=== PATIENT | female | born 1945 | race Caucasian/White ===

== ENCOUNTER 2017-11-19 11:45 | Day surgery (SDC) | payer MEDICARE, SELFPAY ==
[2017-10-12 10:33] VITALS: BMI 29.2
[2017-11-16 18:35] VITALS: BP 144/75; PULSE 88; RESP 17; TEMP 36.2; O2SAT 95
[2017-11-19] VITALS (11 sets, daily range): BP systolic 111–153; BP diastolic 67–92; PULSE 78–96; RESP 14–18; TEMP 36.3–36.8; O2SAT 95–99; BMI 29.2
--- NOTE | 2017-11-19 | DI.RAD.S_ITS ---
PROCEDURE: XR KNEE RT 1TO2V INDICATIONS: POST OP KNEE SURGERY TECHNIQUE: 2 view(s) of the knee acquired. COMPARISON: [facility] CHAYO Curiel, XR KNEE ARTHRITIC SERIES LT, 08/12/2017, 13:41. FINDINGS: Bones: Patient is status post knee joint arthroplasty. Hardware components are in expected positions. Visualized bony structures are intact. Soft tissues: Overlying postoperative changes are noted. IMPRESSION: Acute postoperative changes of total right knee arthroplasty. Dictated by: Manoj Lomeli M.D. on 11/19/2017 at 16:47 Approved by: Manoj Lomeli M.D. on 11/19/2017 at 16:47
[2017-11-19] MEDS: LACTATED RINGERS 1,000 ML 42 ML IV (12:25)
[2017-11-19] MEDS: VANCOMYCIN 1,000 MG/200 ML FROZ.PIGGY 133.333 MG IV (12:26)
--- NOTE | 2017-11-19 13:56 | PM.PREOP ---
Pre-operative Note Interval Note Pre-op Check: History & Physical Reviewed by Physician
--- NOTE | 2017-11-19 13:56 | PM.OP.1 ---
Operative Date/Time/Diagnoses - Date of procedure: 11/19/17 Time of procedure: 13:56 Post-op diagnosis: same Procedure & Clinicians Procedure: Right total knee arthroplasty Same procedure as scheduled: Yes Indications: The patient has had progressively worsening right knee pain with radiographic changes consistent with arthritis. Non-operative management has failed and the patient has requested total knee replacement. The risks, benefits and alternatives to surgery were discussed with the patient prior to proceeding. Risks discussed included, but were not limited to, failure to relieve pain, stiffness, infection, nerve damage, deep venous thrombosis, pulmonary embolism, stroke, coma, heart attack, permanent paralysis and , as well as the potential need for eventual revision of the prosthetic. Surgeon: Ashley Noriega Sales Agent Financial Report Service: Florin Quispe Anesthesia Type: Spinal Operative Notes Findings: Severe right knee osteoarthritis Closure Type: primary Specimen(s): none sent Implants & Drains: Noriega and Karen Bernadette BCS2 femur 7, Tibia 6, poly 9 , patella 38 Estimated Blood Loss (mL): 200 Blood products transfused: none Procedure in detail: The patient was seen in the pre-operative area, where the patient identified the right knee as the operative site and this was marked with my initials. The patient received pre-operative antibiotics, and was taken to the operating room and placed on the operative table in the supine position. After satisfactory anesthesia, a timers inspector out was performed. The right leg was encircled with a tourniquet about the proximal thigh, and the leg was prepared from the toes to the tourniquet with ChloroPrep in the usual fashion and draped through sterile drapes. The leg was elevated and exsanguinated with Eschmark bandage and the tourniquet inflated to [250] mmHg pressure. The knee was approached through an approximately 18 cm incision centered over the patella and carried into the knee through a medial parapatellar arthrotomy. A Portion of the medial and lateral meniscus was resected. Soft tissue was carefully mobilized around the patella the patella was measured with a caliper. Bone was resected from the patella and the patellar height was reconstituted with up an appropriate sized patellar component. A cover was then placed on the patella. A small amount of additional medial and lateral meniscus was resected. The visionare guide fit well to the distal femur. It looked like an appropriate distal femoral cut and the cut was made without difficulty. The rotation was assessed and the appropriate size femoral guide was placed on the distal femur and finishing cuts were made. There was no evidence of notching. The anterior, posterior and chamfer cuts were then made. The posterior osteophytes and soft tissues were then removed. The posterior capsule was injected with part of a mixture of 60 ml 0.25% Marcaine mixed with 20 ml Exparel for post operative pain control. The remainder of this mixture was injected into the capsule and subcutaneous tissues during cement curing. The tibia was prepared and the visionaire guide fit well to the distal tibia. The rotation was assessed. The patient was placed in extension residual medial and lateral meniscus as well as any residual bone was carefully resected. No additional tibia was resected. Hemostasis was achieved especially posteriorly. Additional local was injected into the posterior capsule. The extension gap was assessed and additional releases for gap balancing were performed as necessary. It was checked with the gap manager english. The femoral component was trial was placed and the notch was finished. Trial tibial and femoral components were then placed and the knee placed through a range of motion. Range of motion was [0-130], with good stability throughout the range. A vicryl stitch was placed in the popliteal tendon. The trials were then removed, and the tibia was finished. The bone was prepared with pulsatile lavage, and dried with a sponge. Cement was applied and the final prosthetics placed. Excess cement was removed during and after cement curing. A brief Betadine soak was performed. After confirming there was no extruded cement posteriorly, the final tibial insert was placed. The knee was copiously irrigated and the tourniquet deflated. Hemostasis was obtained with the [cautery]. A drain was placed and brought out superolaterally. The capsule was closed with interrupted # 1 black braided suture. The subcutaneous layer was closed with barbed sutures, and the skin with a running 3-0 V-Lock suture and Surgical glue. An Aquacel Ag dressing was applied and the patient was taken to recovery having tolerated the procedure well. Complications: none Condition: stable Disposition: Acute Care Plan for aftercare: The patient will be maintained on a standard total knee replacement protocol with weight bearing as tolerated. The patient will receive Aspirin and sequential compression devices for DVT prophylaxis. The patient will be discharged home when safe for the home environment.
[2017-11-19] MEDS: CEFAZOLIN 2 GM/100 ML FROZ.PIGGY IV ×2 (14:20→21:12)
[2017-11-19] MEDS: BUPIVACAINE LIPOSOME 266 MG/20 ML VIAL INJ (14:57)
[2017-11-19] MEDS: POVIDONE-IODINE 15 ML, SODIUM CHLORIDE 0.9% 250 ML TOP (14:59)
[2017-11-19] MEDS: BUPIVACAINE 0.25% W/ EPI 50 ML VIAL INJ (15:04)
[2017-11-19] MEDS: MORPHINE 10 MG/ML INJ 2 MG IV ×5 (16:15→16:40)
--- NOTE | 2017-11-19 16:39 | PM.OP.1 ---
Operative Date/Time/Diagnoses - Date of procedure: 11/19/17 Time of procedure: 14:10 Pre-op diagnosis: Right knee OA Post-op diagnosis: same Procedure & Clinicians Procedure: Right total knee replacement Same procedure as scheduled: Yes Indications: The patient has had progressively worsening right knee pain with radiographic changes consistent with arthritis. Non-operative management has failed and the patient has requested total knee replacement. The risks, benefits and alternatives to surgery were discussed with the patient prior to proceeding. Risks discussed included, but were not limited to, failure to relieve pain, stiffness, infection, nerve damage, deep venous thrombosis, pulmonary embolism, stroke, coma, heart attack, permanent paralysis and , as well as the potential need for eventual revision of the prosthetic. Surgeon: Ashley Noriega Tile Roofer: Florin Quispe Anesthesia Type: Spinal Operative Notes Findings: Severe right knee OA Closure Type: primary Specimen(s): none sent Implants & Drains: Noriega and Nephew Bernadette BCS2 size 7 femur, size 6 tibia, size 9 poly, 38 mm patella Applied: drain(s) Estimated Blood Loss (mL): 200 Blood products transfused: none Tourniquet time (min): 66 Procedure in detail: The patient was seen in the pre-operative area, where the patient identified the right knee as the operative site and this was marked with my initials. The patient received pre-operative antibiotics, and was taken to the operating room and placed on the operative table in the supine position. After satisfactory anesthesia, a time study technologist out was performed. The right leg was encircled with a tourniquet about the proximal thigh, and the leg was prepared from the toes to the tourniquet with ChloroPrep in the usual fashion and draped through sterile drapes. The leg was elevated and exsanguinated with Eschmark bandage and the tourniquet inflated to [250] mmHg pressure. The knee was approached through an approximately 18 cm incision centered over the patella and carried into the knee through a medial parapatellar arthrotomy. A Portion of the medial and lateral meniscus was resected. Soft tissue was carefully mobilized around the patella the patella was measured with a caliper. Bone was resected from the patella and the patellar height was reconstituted with up an appropriate sized patellar component. A cover was then placed on the patella. A small amount of additional medial and lateral meniscus was resected. The visionare guide fit well to the distal femur. It looked like an appropriate distal femoral cut and the cut was made without difficulty. The rotation was assessed and the appropriate size femoral guide was placed on the distal femur and finishing cuts were made. There was no evidence of notching. The anterior, posterior and chamfer cuts were then made. The posterior osteophytes and soft tissues were then removed. The posterior capsule was injected with part of a mixture of 60 ml 0.25% Marcaine mixed with 20 ml Exparel for post operative pain control. The remainder of this mixture was injected into the capsule and subcutaneous tissues during cement curing. The tibia was prepared and the visionaire guide fit well to the distal tibia. The rotation was assessed. The patient was placed in extension residual medial and lateral meniscus as well as any residual bone was carefully resected. [No] additional tibia was resected. Hemostasis was achieved especially posteriorly. Additional local was injected into the posterior capsule. The extension gap was assessed and additional releases for gap balancing were performed as necessary. It was checked with the gap drug safety assistant. The femoral component was trial was placed and the notch was finished. Trial tibial and femoral components were then placed and the knee placed through a range of motion. Range of motion was [0-130], with good stability throughout the range. The trials were then removed, and the tibia was finished. The bone was prepared with pulsatile lavage, and dried with a sponge. Cement was applied and the final prosthetics placed. Excess cement was removed during and after cement curing. A brief Betadine soak was performed. After confirming there was no extruded cement posteriorly, the final tibial insert was placed. The knee was copiously irrigated and the tourniquet deflated. Hemostasis was obtained with the cautery. A drain was placed and brought out superolaterally. The capsule was closed with interrupted # 1 black braided suture. The subcutaneous layer was closed with barbed sutures, and the skin with a running 3-0 V-Lock suture and Surgical glue. An Aquacel Ag dressing was applied and the patient was taken to recovery having tolerated the procedure well. Complications: none Condition: stable Disposition: Acute Care Plan for aftercare: The patient will be maintained on a standard total knee replacement protocol with weight bearing as tolerated. The patient will receive aspirin and sequential compression devices for DVT prophylaxis. The patient will be discharged home when safe for the home environment.
--- NOTE | 2017-11-19 16:54 | SUR.PHASEI ---
pt awake and alert. states pain is tolerable. Pt had a juice and ice chips denies any nausea. pt is awake and alert. and had a total of 10 mg of morphine iv for pain. lungs are clear and and dressing dry and intact. Report given to Nimo HOOPER
[2017-11-19] MEDS: ROPINIROLE 0.25 MG TABLET PO (18:08)
[2017-11-19] MEDS: ACETAMINOPHEN 325 MG TABLET 650 MG PO (18:08)
[2017-11-19] MEDS: LACTATED RINGERS 1,000 ML 125 ML IV (18:08)
--- NOTE | 2017-11-19 19:21 | PC.NURSE ---
POST-OP Received pt at approximately 1700 via bed, accompanied by LOADER UNLOADER. A&Ox3, pleasant and cooperative. R knee BARNEY wrap dressing CDI, hemovac drain intact. denies any numbness/tingling, distal CMS intact. c/o minimal pain to R knee, rated 3/10. pt due to void at 2000, pt verbalized understanding. denies N/V, dizziness. MIVF running per eMAR orders. pt advanced to regular diet, tolerating without difficulties. pt oriented to room and call light.
[2017-11-19] MEDS: diphenhydrAMINE 50 MG/ML VIAL 25 MG IV (21:04)
[2017-11-19] MEDS: METOCLOPRAMIDE 10 MG/2 ML INJ IV (21:10)
[2017-11-19] MEDS: sulfaSALAzine 500 MG TABLET 1500 MG PO (22:51)
[2017-11-19] MEDS: CYCLOBENZAPRINE 10 MG TABLET 20 MG PO (22:52)
[2017-11-19] MEDS: TRAZODONE 50 MG TABLET PO (22:52)
[2017-11-19] MEDS: ASPIRIN EC 81 MG TABLET PO (22:52)
[2017-11-19] MEDS: ASCORBIC ACID 500 MG TABLET PO (22:52)
[2017-11-19] MEDS: GABAPENTIN 300 MG CAPSULE PO (22:53)
[2017-11-19] MEDS: FERROUS SULFATE 325 MG TABLET PO (22:53)
[2017-11-19] MEDS: CELECOXIB 100 MG CAPSULE PO (22:53)
[2017-11-19] MEDS: DOCUSATE 100 MG CAPSULE PO (22:53)
[2017-11-20 00:01] VITALS: BP 128/81; PULSE 91; RESP 18; TEMP 36.4; O2SAT 96
[2017-11-20] MEDS: LACTATED RINGERS 1,000 ML 125 ML IV (02:44)
[2017-11-20 04:00] VITALS: BP 113/64; PULSE 80; RESP 16; TEMP 36.7; O2SAT 97
[2017-11-20] MEDS: METOCLOPRAMIDE 10 MG/2 ML INJ IV (04:42)
[2017-11-20 05:58] LABS: Hematocrit 29.3 % (36-46)
[2017-11-20] MEDS: CEFAZOLIN 2 GM/100 ML FROZ.PIGGY IV (06:04)
[2017-11-20] MEDS: ACETAMINOPHEN 325 MG TABLET 650 MG PO (06:06)
[2017-11-20] MEDS: LEVOTHYROXINE 112 MCG TABLET PO (06:09)
[2017-11-20] MEDS: LIOTHYRONINE 5 MCG TABLET PO (06:09)
--- NOTE | 2017-11-20 06:38 | PC.NURSE ---
Pt vomited 15cc, medicated w/reglan. at this time pt is comfortable denies pain and n/v. call light in reach.
[2017-11-20 07:57] VITALS: BP 113/64; PULSE 93; RESP 18; TEMP 36.6; O2SAT 97
[2017-11-20] MEDS: ESCITALOPRAM 10 MG TABLET 20 MG PO (08:14)
[2017-11-20] MEDS: DOCUSATE 100 MG CAPSULE PO (08:19)
[2017-11-20] MEDS: CHOLECALCIFEROL (VITAMIN D3) 400 UNIT TABLET PO (08:20)
[2017-11-20] MEDS: dilTIAZem CD 180 MG CAP PO (08:20)
[2017-11-20] MEDS: ASCORBIC ACID 500 MG TABLET PO (08:20)
[2017-11-20] MEDS: CELECOXIB 100 MG CAPSULE PO (08:20)
[2017-11-20] MEDS: sulfaSALAzine 500 MG TABLET 1500 MG PO (08:20)
[2017-11-20] MEDS: FERROUS SULFATE 325 MG TABLET PO (08:21)
[2017-11-20] MEDS: LISINOPRIL 20 MG TABLET PO (08:23)
[2017-11-20] MEDS: hydroCHLOROthiazide 25 MG TABLET PO (08:24)
[2017-11-20] MEDS: GABAPENTIN 300 MG CAPSULE PO (08:24)
[2017-11-20] MEDS: MULTIVITAMIN 1 TABLET 1 TAB PO (08:25)
[2017-11-20] MEDS: OXYCODONE IR 5 MG TABLET PO (08:35)
--- NOTE | 2017-11-20 08:44 | P.DS_ITS ---
History of Present Illness Date Patient Seen: 11/20/17 Time Patient Seen: 08:43 Chief complaint: *OPB* 94310 RIGHT TOTAL KNEE ARTHROPLASTY *OPB* Narrative: Patient is a 71-year-old female with history of right knee osteoarthritis. She failed conservative measures and elected to proceed with a right total knee replacement with Dr. Noriega. Discharge Providers Primary care physician: Nicola Escamilla MD Consults: 11/19/17 17:03 Consult to Discharge Planning Routine Comment: Consult to Physical Therapy Evaluate & Treat Comment: Physician Instructions: postop TKA protocol Consult to Respiratory Therapy Evaluate & Treat Comment: Physician Instructions: Evaluate and treat Discharge provider: Ashley Rodriguez PA-C Summary Discharge Diagnosis: Right knee osteoarthritis Hospital Course: Patient was admitted and taken the operating room she had a right total knee arthroplasty by Dr. Noriega. She recovered well and was transferred to the floor for further care. Postop day 1 patient was eating well , pain with her control and she was ready to be discharged home. She has is with passive patient has all of her discharge medications are ready. Her left knee was replaced earlier this year and knows the [employer] process and exercises to do for her knee. Status at Discharge Cognitive/behavioral status at discharge: The patient is alert and orient x3. Functional status at discharge: uses cane/walker Overall status at discharge: patient is progressing back to baseline Time Spent with Patient Less than 30 minutes Exam Vital Signs (past 8 hours): Vital Signs - 8 hr 3 11/20/17 04:00 11/20/17 07:57 Temperature 98.0 F 97.9 F Pulse Rate 80 93 H Respiratory Rate 16 18 Blood Pressure 113/64 113/64 Pulse Oximetry 97 97 Pulse Oximetry 97 Oxygen Delivery Method Room Air Oxygen Flow Rate 0 Narrative Exam Narrative: Patient in bed. Comfortable. Alert and orient x3. Right knee dressing clean dry intact. 5/5 left ankle strength. Bilateral calves soft and nontender. Neurovascular status intact. Objective Labs Result Diagrams: 11/20/17 05:45 Labs: Laboratory Results - last 24 hr 11/20/17 05:45 Hgb 10.0 L Hct 29.3 L Discharge Plan Discharge Plan Patient Disposition: Home, Self-Care Discharge comment: Continue home exercises and start physical therapy next week. Discharge Med Rec/Prescriptions Prescriptions: New oxycodone 5 mg Tablet 5 mg PO Q4HR PRN (Reason: Pain, Moderate) Qty: 0 RF: 0 Continue multivitamin Capsule 1 cap PO QAM Qty: 0 RF: 0 [CALCIUM W/VITAMIN D] capsule 1 tab PO Q DAY Qty: 0 RF: 0 acyclovir 800 MG tablet 800 mg PO BID PRN (Reason: Outbreaks) Qty: 0 RF: 0 Disabled Parking Permit Qty: 1 RF: 0 lisinopril 20 MG tablet 20 mg PO QDAY Qty: 90 RF: 0 levothyroxine 112 MCG tablet 0.112 mg PO QAM Qty: 90 RF: 1 glucosamine sulfate-msm 1 EACH capsule 2 tab PO BID Qty: 0 RF: 0 acetaminophen 325 MG tablet 650 mg PO QAM Qty: 0 RF: 0 [CURCUMIN] capsule 1 cap PO QDAY Qty: 0 RF: 0 omeprazole 40 MG capsule,delayed release(DR/EC) 40 mg OR SEE INSTRUCTIONS Qty: 90 RF: 0 escitalopram oxalate [Lexapro] 20 MG tablet 20 mg PO QDAY Qty: 0 RF: 0 trazodone 50 MG tablet 50 mg PO HS Qty: 0 RF: 0 cetirizine 10 MG tablet 10 mg PO HS PRN (Reason: Allergy Symptoms) Qty: 0 RF: 0 diphenhydramine-acetaminophen [Acetaminophen PM] 500 MG/25 MG tablet 2 tab PO HSP PRN (Reason: pain) Qty: 0 RF: 0 ferrous sulfate [Iron (ferrous sulfate)] 325 MG tablet 325 mg PO BID Qty: 0 RF: 0 omega 4-lst-wyw-fish oil [Fish Oil] 1,000 MG capsule 1,000 mg PO QDAY Qty: 0 RF: 0 aspirin 81 MG tablet,delayed release (DR/EC) 81 mg PO BID Qty: 60 RF: 0 potassium 99 mg Tablet 198 mg PO QPM RF: 0 gabapentin 300 mg Capsule 300 mg PO TID RF: 0 hydrochlorothiazide 25 mg Tablet 25 mg PO DAILY RF: 0 celecoxib [Celebrex] 100 mg Capsule 100 mg PO BID RF: 0 cholecalciferol (vitamin D3) [Vitamin D3] 400 unit Tablet 400 unit PO DAILY RF: 0 [Vitamin C] tablet 500 mg PO BID RF: 0 sulfasalazine 500 mg Tablet 1,500 mg PO BID RF: 0 cyclobenzaprine 10 mg Tablet 20 mg PO BEDTIME RF: 0 diltiazem HCl 180 mg Tablet Extended Release 24 Hr 180 mg PO QAM RF: 0 diphenhydramine-acetaminophen [Tylenol PM Extra Strength] 25-500 mg Tablet 2 tab PO BEDTIME PRN (Reason: Sleep) RF: 0 ropinirole [Requip] 0.25 MG tablet 0.25 mg PO QPM RF: 0 liothyronine 5 mcg 5 mg PO DAILY RF: 0 Follow up/Referrals: Ashley Noriega MD [Physician] - (Follow-up as scheduled appointment date and time. Contact the office with any questions or concerns.) Discharge Orders: Discharge (Order); Ordered 11/20/17 Ordered By: Ashley Rodriguez Provider Discharge Instructions Diet: Diet as Tolerated Activity: As tolerated Cold/Heat Therapy: Apply ice on extremity as needed for pain and swelling. Wound Care Report to your healthcare provider any signs of infection, such as:: chills, fever, increased pain and unusual drainage Dressing: Leave dressings clean dry and intact. May shower. Visit Report/Discharge Packet Instructions: DI for Knee Replacement Stand Alone Forms: Surgery Discharge Discharge Data Primary Care Provider: Nicola Escamilla Attending Provider: Ashley Noriega Quality VTE Deep Vein Thrombosis/Pulmonary Embolism Present on Admission: No
--- NOTE | 2017-11-20 09:05 | PT.IIE ---
Current Diagnoses Unilateral primary osteoarthritis, right knee (11/19/17) Surgery Performed Operation Date: 11/19/17 13:45 Actual Procedures p Total Knee Arthroplasty(Right) - Ashley Noriega MD Surgical History (Last Updated 10/12/17 @ 10:58 by Naz Pink RN) History of total knee arthroplasty (Acute) History of hip replacement (08/29/15) History of tonsillectomy Physical Therapy Inpatient Evaluation/Re-Eval M1 PT/OT-IP Prior Functional Status Start: 11/20/17 10:02 Freq: NEEDED Status: Active Protocol: Document 11/20/17 10:02 AB (Rec: 11/20/17 10:12 AB [id number]) Medical Review Prior Functional Status Medical History Reviewed Yes Mobility and Gait pt stated that she is independent with all mobilities and ambulation without AD indoors but uses SPC for outdoor mobility Social History Household Members none Living Arrangements House Number of Floors (Floors) One Floor Number of Stairs To Enter/Railing? no steps to enter Home Environment Tub/Shower Home Equipment Front Wheel Walker Straight Cane Crutches Bedside Commode Shower Seat with Backrest Hand Held Shower Employment Status Retired Additional Social History Comment pt stated that she just had her L TKA last july 2017 and has used bilateral crutches for mobility and prefers using these. Has neighbors and friends that will come to assist her if needed M2 PT-IP Current Condition Start: 11/20/17 10:02 Freq: NEEDED Status: Active Protocol: Document 11/20/17 10:02 AB (Rec: 11/20/17 10:12 AB [id number]) Physical Therapy Current Condition Current Condition Evaluation Date 11/20/17 Treatment Diagnosis s/p R TKA Weight Bearing Status Weight Bearing Status Weight Bear as Tolerated M3 PT-IP Subjective Start: 11/20/17 10:02 Freq: NEEDED Status: Active Protocol: Document 11/20/17 10:02 AB (Rec: 11/20/17 10:12 AB [id number]) Subjective Physical Therapy Visit Type Type Initial Evaluation Visit Start Time 09:05 Visit Stop Time 09:25 Total Visit Minutes 20 Number of IDENTIFICATION AND RECORDS COMMANDER Visits 0 Physical Therapy Visit Comments Patient Comments pt wanting to catch the 1230 [employer] Therapy Pain Assessment Pain When Pain Assessed At Rest Pain Present Pain Present Pain Reported Location Right Knee Intensity 3 Scale Used Numeric (1 - 10) Pain Management Techniques Timing of Activity with Medications M4 PT-IP Mobility and Gait Start: 11/20/17 10:02 Freq: NEEDED Status: Active Protocol: Document 11/20/17 10:02 AB (Rec: 11/20/17 10:12 AB [id number]) PT-Bed Mobility Assessment Supine to Sit Supine to Sit Independent Sit to Supine Sit to Supine Independent Scooting Scooting to Edge of Bed Independent PT-Transfer Assessment Sit to and From Stand Sit to and from Stand Independent Equipment Transfer Assistive Device Gait Belt Axillary Crutches Gait Assessment Gait Gait Assistance Required: Standby Assistance Distance (Feet) (feet) 100 Able to Maintain Weight Bearing Status Yes During Gait Assistive Devices Assistive Device Gait Belt Axillary Crutches Orthotic/Prosthetic Devices or Brace: No Factors Limiting Gait Function Factors Limiting Gait Function Decreased Activity Tolerance Decreased Strength Pain Poor Balance PT-Balance Assessment Sitting Balance and Reactions Static Sitting Balance Ability Good Dynamic Sitting Balance Ability Good Standing Balance and Reactions Static Standing Balance Ability Fair Dynamic Standing Balance Ability Fair Device Used axillary crutches M5 PT-IP Objective Assessments Start: 11/20/17 10:02 Freq: NEEDED Status: Active Protocol: Document 11/20/17 10:02 AB (Rec: 11/20/17 10:12 [id number]) Orientation Orientation/Cognition Level of Alertness Alert Orientation Name Age Birthday Month Date Year Day of Week Place Situation Gross Range of Motion Lower Extremity ROM Assessment Right Impaired Impairments R knee flexion ~ 80 deg Strength Lower Extremity Strength Assessment Right Impaired Knee 4-/5 M6 PT-IP Treatment Start: 11/20/17 10:02 Freq: NEEDED Status: Active Protocol: Document 11/20/17 10:02 AB (Rec: 11/20/17 10:12 [id number]) Physical Therapy Treatment Education Education Provided Precautions Weight Bearing Status Post-Op Packet Safety M7 PT-IP Assessment and Plan Start: 11/20/17 10:02 Freq: NEEDED Status: Active Protocol: Document 11/20/17 10:02 AB (Rec: 11/20/17 10:12 AB [id number]) PT Summary Assessment and Plan Potential Rehabilitation Potential Good Status of Condition at Evaluation Stable Summary Impairments Pain ROM Strength Balance Bed Mobility Transfers Gait Activity Tolerance Progress Towards Goals Safe For Discharge Assessment Summary pt requiring SBA with mobility and may go home when medically stable Goals Bed Mobility Goal Independent Transfer Goal Independent Gait Goal Independent Gait Distance 150 Days to Meet Goals 2 Frequency of Treatment Frequency Of Treatment Twice a Day Treatment Plan Physical Therapy Treatment Plan Bed Mobility Training Transfer Training Gait Training Therapeutic Exercise Balance Retraining Post Op Education Discharge Planning Hot or Cold Pack Neuromuscular Re-ed Coordination Retraining Manual Therapy Recommendations To Nursing Amount of Assist Needed Standby Assistance Discharge Recommendations PT Discharge Recommendations Home with Assistance Outpatient PT Provider Visit Care Team Role Provider Type Nicola Escamilla MD Primary Care Provider Physician Specialty: Family Practice Ashley Noriega MD Attending Provider Physician Specialty: Orthopedic Surgery
[2017-11-20] MEDS: ASPIRIN EC 81 MG TABLET PO (09:13)
--- NOTE | 2017-11-20 12:06 | CM.DANOTE ---
DCP Assessment: Pt here for a scheduled knee surgery w/VASQUEZ Isaac. Pt was DC and off the floor before this SQUIRREL WORKER could meet w/her this morning. Pt indp and active at baseline. No DC concerns noted. MISSAELW
== END 2017-11-20 11:00 | disposition home or self-care (01) ==
LOC: OR 11:48 → AC 11:49
PROVIDERS: PCP Family Medicine; Visit Provider Orthopaedic Surgery
PROC: 0SRC0JZ Replacement of Right Knee Joint with Synthetic Substitute, Open Approach (ICD-10-PCS; CPT 27447; principal; 2017-11-19 13:45)
DX: M17.11 Unilateral primary osteoarthritis, right knee (principal); E03.9 Hypothyroidism, unspecified; Z79.84 Long term (current) use of oral hypoglycemic drugs
CPT/HCPCS: 27447; 36415; 73560; 85014; 85018; 97161; C1776; C9290; J0690; J1100; J1200; J2250; J2270; J2274; J2405; J2704; J2765; J3010; J3370

== ENCOUNTER 2017-12-09 19:11 | Emergency (ER) | payer MEDICARE, SELFPAY ==
[2017-11-19 17:10] VITALS: BMI 29.2
--- NOTE | 2017-12-09 19:30 | ED.SOB ---
HPI - SOB/Dyspnea General Chief Complaint: Arrhythmia/Palpitations Stated Complaint: SOB + Dimer, Post surgey Time Seen by Provider: 12/09/17 19:30 Source: patient Mode of arrival: ambulatory Limitations: no limitations History of Present Illness 72-year-old female presents to the emergency department at the request from her primary care provider on [place]. She was seen and evaluated in the office a few days ago for feeling tired and out of it. She recently had surgery on her right knee and had labs drawn. She had a critically elevated D-dimer and was called at home by nursing and told to come to the emergency department immediately. She refused to take airlift became by POV for evaluation. On arrival she stated she had no symptoms specifically chest pain, shortness of breath or palpitations. She was confused about why her doctor asked her to come because she feels normal. She is not dizzy or lightheaded and denies syncope. She states she started feeling much better after drinking extra fluids yesterday Context: trauma/injury Severity: mild Consistency/Duration: now resolved Related Data Home Medications Medication Instructions Recorded Confirmed [CALCIUM W/VITAMIN D] 1 tab PO Q DAY #0 12/12/10 11/19/17 multivitamin 1 cap PO QAM #0 12/12/10 11/19/17 acyclovir 800 mg PO BID PRN #0 04/11/11 11/19/17 [CURCUMIN] 1 cap PO QDAY #0 01/21/17 11/19/17 acetaminophen 650 mg PO QAM #0 01/21/17 11/19/17 glucosamine sulfate-msm 2 tab PO BID #0 01/21/17 11/19/17 cetirizine 10 mg PO HS PRN #0 07/13/17 11/19/17 diphenhydramine-acetaminophen 2 tab PO HSP PRN #0 07/13/17 11/19/17 [Acetaminophen PM] escitalopram oxalate [Lexapro] 20 mg PO QDAY #0 07/13/17 11/19/17 ferrous sulfate [Iron (ferrous 325 mg PO BID #0 07/13/17 11/19/17 sulfate)] omega 3-hlb-[id number]-fish oil [Fish Oil] 1,000 mg PO QDAY #0 07/13/17 11/19/17 trazodone 50 mg PO HS #0 07/13/17 11/19/17 ascorbic acid (vitamin C) [Vitamin 500 mg PO BID #0 10/12/17 11/19/17 C] celecoxib [Celebrex] 100 mg PO BID 10/12/17 11/19/17 cholecalciferol (vitamin D3) 400 unit PO DAILY 10/12/17 11/19/17 [Vitamin D3] gabapentin 300 mg PO TID 10/12/17 11/19/17 hydrochlorothiazide 25 mg PO DAILY 10/12/17 11/19/17 potassium 198 mg PO QPM 10/12/17 11/19/17 sulfasalazine 1,500 mg PO BID 10/12/17 11/19/17 cyclobenzaprine 20 mg PO BEDTIME 11/11/17 11/19/17 diltiazem HCl 180 mg PO QAM 11/11/17 11/19/17 diphenhydramine-acetaminophen 2 tab PO BEDTIME PRN 11/11/17 11/19/17 [Tylenol PM Extra Strength] ropinirole [Requip] 0.25 mg PO QPM 11/11/17 11/19/17 liothyronine 5 mg PO DAILY 11/19/17 11/19/17 Disabled Parking Permit 1 ea MISCELLANEOUS DIRECTED 11/20/17 11/20/17 Previous Rx's Medication Instructions Recorded levothyroxine 0.112 mg PO QAM #90 tab 12/23/16 lisinopril 20 mg PO QDAY #90 tab 12/23/16 omeprazole 40 mg OR SEE INSTRUCTIONS #90 cap 01/22/17 aspirin 81 mg PO BID #60 07/31/17 oxycodone 5 mg PO Q4HR PRN #0 tab 11/20/17 Allergies Allergy/AdvReac Type Severity Reaction Status Date / Time epinephrine [EPINEPHRINE] AdvReac Intermediate IN GENERAL Verified 11/19/17 17:24 ANESTHESIA DECREASED BP?; HEART RACING Review of Systems Review of Systems All systems reviewed & are unremarkable except as noted in HPI and below Constitutional Denies chills, Denies fever(s), Denies lethargy and Reports weakness Eyes Denies change in vision, Denies eye discharge, Denies irritation and Denies loss of vision ENT Ears, Nose, Mouth, and Throat: Denies change in voice, Denies neck pain and Denies sore throat Cardiovascular Denies chest pain, Denies irregular heart rhythm, Denies lightheadedness, Denies palpitations, Denies dyspnea, Denies dyspnea on exertion and Denies orthopnea Respiratory Denies cough, Denies dyspnea, Denies dyspnea on exertion and Denies wheezing Gastrointestinal Gastrointestinal: Denies abdominal pain, Denies change in bowel habits, Denies diarrhea, Denies nausea and Denies vomiting Genitourinary Denies hematuria, Denies flank pain, Denies urinary incontinence and Denies urinary urgency Musculoskeletal Denies neck pain Integumentary/Breasts Denies pruritus, Denies erythema, Denies rash and Denies wounds Neurologic Denies confusion, Denies loss of vision and Reports weakness Psychiatric Denies anxiety, Denies confusion, Denies depression, Denies homicidal ideation and Denies suicidal ideation Endocrine Denies palpitations Hematologic/Lymphatic Denies easy bruising Allergic/Immunologic Denies wheezing PFSH Surgical History History of total knee arthroplasty (Acute) History of hip replacement (08/29/15) History of tonsillectomy Family History Father Alcoholism Grandmother Blindness Osteoarthritis Grandfather Heart disease Hypertension Sister Age: 65 Asthma Diabetes mellitus Pacemaker Osteoarthritis Hypertension High cholesterol Exam Narrative Exam Narrative: Pleasant 72-year-old female in no distress Initial Vital Signs Initial Vital Signs: Vital Signs Pulse Rate 160 H 12/09/17 19:53 Respiratory Rate 16 12/09/17 19:53 Blood Pressure 139/100 H 12/09/17 19:53 Pulse Oximetry 100 12/09/17 19:53 Const General: cooperative and well developed Nutritional Appearance: well nourished Orientation: alert, awake, oriented x3 and not confused [facility] Head: normocephalic and atraumatic Ears: external ears normal and TM's normal bilaterally Nose: external nose normal and No nasal discharge Face and sinus: sinuses nontender, face symmetric, no sinus tenderness and No dry mucous membranes Mouth: oral mucosae normal and moist mucous membranes Teeth and gingiva: dentition normal Throat: tonsils normal and uvula midline Resp Effort & Inspection: normal respiratory effort, able to speak in complete sentences, no respiratory distress and no use of accessory muscles Auscultation: clear to auscultation bilaterally, no rales, no rhonchi and no wheezes Cardio Rate: tachycardic Rhythm: abnormal rhythm GI Inspection: non-distended Palpation: soft, no hepatosplenomegaly, No guarding, No pulsatile mass and No tender Auscultation: normal bowel sounds Skin General: no rashes or lesions noted, No jaundice and No petechiae Neuro General: alert, oriented x3, gait normal and no focal motor deficits Speech: speech normal Extrem Right lower extremity: knee (No significant swelling or warmth outside of that which would be expected at this point after surgery. Incision is clean, dry and intact.) Course Reevaluation(s) Reevaluation #1: I had a lengthy discussion with the patient whom almost immediately upon arrival was demanding discharge stating she felt completely fine, did not understand why she was here, had no symptoms, and had a ferry to catch. We spent a significant amount of time talking about her D-dimer is often elevated after surgery and that in the absence of other symptoms such as chest pain or shortness of breath that she is unlikely to have a clinically significant pulmonary embolism. I asked if I could perform a physical exam and noted her to have quite a rapid heart rate which was irregular and patient states that she has had 1 prior episode of atrial fibrillation in the past. Patient states that she has no symptoms and perhaps her elevated heart rate is because she is nervous about catching the [place]. I made multiple attempts (in the presence of 2 nurses) to convince patient to stay and allow us to evaluate and treat her rapid atrial fibrillation and further evaluate for the possibility of a pulmonary embolism. The patient refused any evaluation despite discussion of possible heart attack, stroke, permanent disability, or even . I asked if there were any friends or family members I could call for help in convincing her to stay and she refused. Furthermore I mentioned that the patient could return immediately if she were to change her mind. The patient has capacity to make her decisions, clearly understands the possible risk of leaving and was able to verbalize understanding. She was happy to stop the AMA form Vital Signs - 8 hr 12/09/17 19:53 12/09/17 20:12 Pulse Rate 160 H 160 H Respiratory Rate 16 16 Blood Pressure 139/100 H 139/100 H Pulse Oximetry 100 100 Discharge Plan Departure Patient Disposition: Left Against Medical Advice Clinical Impression: Atrial fibrillation with rapid ventricular response Discharge Date/Time: 12/09/17 19:53 Interventions: ED Discharge Assessment Last Done: 12/09/17 20:12 Instructions: Atrial Fibrillation Activity Restrictions/Additional Instructions: *You have been diagnosed with [ atrial fibrillation with rapid response ] *What to do: * please return immediately at any point for full evaluation stabilization of her condition. As we discussed not treating rapid AFib puts you at risk for heart attack, stroke, permanent disability, and even . *Follow up with your primary care provider tomorrow Prescriptions: No Action multivitamin Capsule 1 cap PO QAM Qty: 0 RF: 0 [CALCIUM W/VITAMIN D] capsule 1 tab PO Q DAY Qty: 0 RF: 0 acyclovir 800 MG tablet 800 mg PO BID PRN (Reason: Outbreaks) Qty: 0 RF: 0 lisinopril 20 MG tablet 20 mg PO QDAY Qty: 90 RF: 0 levothyroxine 112 MCG tablet 0.112 mg PO QAM Qty: 90 RF: 1 glucosamine sulfate-msm 1 EACH capsule 2 tab PO BID Qty: 0 RF: 0 acetaminophen 325 MG tablet 650 mg PO QAM Qty: 0 RF: 0 [CURCUMIN] capsule 1 cap PO QDAY Qty: 0 RF: 0 omeprazole 40 MG capsule,delayed release(DR/EC) 40 mg OR SEE INSTRUCTIONS Qty: 90 RF: 0 escitalopram oxalate [Lexapro] 20 MG tablet 20 mg PO QDAY Qty: 0 RF: 0 trazodone 50 MG tablet 50 mg PO HS Qty: 0 RF: 0 cetirizine 10 MG tablet 10 mg PO HS PRN (Reason: Allergy Symptoms) Qty: 0 RF: 0 diphenhydramine-acetaminophen [Acetaminophen PM] 500 MG/25 MG tablet 2 tab PO HSP PRN (Reason: pain) Qty: 0 RF: 0 ferrous sulfate [Iron (ferrous sulfate)] 325 MG tablet 325 mg PO BID Qty: 0 RF: 0 omega 4-jio-knn-fish oil [Fish Oil] 1,000 MG capsule 1,000 mg PO QDAY Qty: 0 RF: 0 aspirin 81 MG tablet,delayed release (DR/EC) 81 mg PO BID Qty: 60 RF: 0 potassium 99 mg Tablet 198 mg PO QPM RF: 0 gabapentin 300 mg Capsule 300 mg PO TID RF: 0 hydrochlorothiazide 25 mg Tablet 25 mg PO DAILY RF: 0 celecoxib [Celebrex] 100 mg Capsule 100 mg PO BID RF: 0 cholecalciferol (vitamin D3) [Vitamin D3] 400 unit Tablet 400 unit PO DAILY RF: 0 ascorbic acid (vitamin C) [Vitamin C] 500 mg Tablet 500 mg PO BID Qty: 0 RF: 0 sulfasalazine 500 mg Tablet 1,500 mg PO BID RF: 0 cyclobenzaprine 10 mg Tablet 20 mg PO BEDTIME RF: 0 diltiazem HCl 180 mg Tablet Extended Release 24 Hr 180 mg PO QAM RF: 0 diphenhydramine-acetaminophen [Tylenol PM Extra Strength] 25-500 mg Tablet 2 tab PO BEDTIME PRN (Reason: Sleep) RF: 0 ropinirole [Requip] 0.25 MG tablet 0.25 mg PO QPM RF: 0 liothyronine 5 mcg 5 mg PO DAILY RF: 0 oxycodone 5 mg Tablet 5 mg PO Q4HR PRN (Reason: Pain, Moderate) Qty: 0 RF: 0 Disabled Parking Permit package 1 ea miscellaneous DIRECTED RF: 0 Stand Alone Forms: Against Medical Advice
[2017-12-09 19:53] VITALS: BP 139/100; PULSE 160; RESP 16; O2SAT 100
--- NOTE | 2017-12-09 19:56 | PC.NURSE ---
Pt triaged in room when Dr Styles came to evaluate. Pt stating desire to want to leave the ED and go home. Reports I cant stay here i [place] 9 [place] ferry Vital signs assessed showing HR 160. Per Dr Styles's assessment pt in rapid Afib. Pt reports she has had Afib in the past and takes meds for it but has not taken them today. Still requesting to go home. Dr Styles explained to the pt the risks at length of leaving against medical advice regarding being in rapid a fib with out proper coagulation. Pt understood the risks and signed AMA paperwork with this RN as a witness. Pt ambulated out of ED with steady gait.
[2017-12-09 20:12] VITALS: BP 139/100; PULSE 160; RESP 16; O2SAT 100
== END 2017-12-09 19:53 | disposition left against medical advice (07) ==
PROVIDERS: Emergency Provider Emergency Medicine; Family Provider Family Medicine; PCP Family Medicine; Referring Provider Orthopaedic Surgery
DX: I48.91 Unspecified atrial fibrillation (principal)
CPT/HCPCS: 12001; 99282

== ENCOUNTER 2021-02-03 19:21 | Emergency (ER) | payer MEDICARE, SELFPAY ==
[2017-11-19 17:10] VITALS: BMI 29.2
[2021-02-03 19:24] VITALS: BP 150/89; PULSE 84; RESP 18; TEMP 36.9; O2SAT 99
--- NOTE | 2021-02-03 19:30 | DI.RAD.S_ITS ---
PROCEDURE: XR WRIST RT MIN 3V INDICATIONS: fall TECHNIQUE: Three views of the wrist were acquired. COMPARISON: None. FINDINGS: Bones: Impacted, transverse, minimally comminuted, and minimally dorsally displaced fracture of the distal radial metaphysis is present. No definite extension to the articular surface. Distal radioulnar joint and radiocarpal alignment appear normal. No other fractures. Incidental note made of degenerative subcortical cystic changes in the carpal bones. Soft tissues: No suspicious soft tissue calcifications. IMPRESSION: 1. Minimally dorsally displaced transverse distal radial metaphyseal fracture. 2. Subcortical cystic changes throughout the carpal bones. Dictated by: Sara Amaro M.D. on 02/03/2021 at 20:03 Approved by: Sara Amaro M.D. on 02/03/2021 at 20:04
--- NOTE | 2021-02-03 21:16 | ED.UPPEXIN ---
HPI - Extremity Injury (Upper) General Chief Complaint: Extremity Injury, Upper Stated Complaint: FALL RIGHT WRIST INJURY Time Seen by Provider: 02/03/21 21:02 Source: patient Mode of arrival: Ambulatory Limitations: no limitations History of Present Illness HPI narrative: 75-year-old female comes with complaint of fall, with right wrist injury. Patient tripped and fell on outstretched hand on her right while watering plants. She states she had pain immediately with fall and had to push up to get up ground. She continues to have pain the wrist. She denies any numbness or tingling. She has increased pain with movement of her fingers but does have full movement. She denies any additional injuries. Patient does take Eliquis, diltiazem and lisinopril for atrial fibrillation as well as some chronic medications for pain including gabapentin. Patient lives on [address]. She has seen Dr. Ashley Noriega in the past for multiple orthopedic surgeries. Related Data Home Medications Medication Instructions Recorded Confirmed [CALCIUM W/VITAMIN D] 1 tab PO Q DAY #0 12/12/10 11/19/17 multivitamin 1 cap PO QAM #0 12/12/10 11/19/17 acyclovir 800 mg tablet 800 mg PO BID PRN #0 04/11/11 11/19/17 [CURCUMIN] 1 cap PO QDAY #0 01/21/17 11/19/17 acetaminophen 325 mg tablet 650 mg PO QAM #0 01/21/17 11/19/17 glucosamine 2 tab PO BID #0 01/21/17 11/19/17 sulfate-methylsulfonylmethane 250 mg-250 mg capsule cetirizine 10 mg tablet 10 mg PO HS PRN #0 07/13/17 11/19/17 diphenhydramine 25 2 tab PO HSP PRN #0 07/13/17 11/19/17 mg-acetaminophen 500 mg tablet (Acetaminophen PM) escitalopram oxalate 20 mg tablet 20 mg PO QDAY #0 07/13/17 11/19/17 (Lexapro) ferrous sulfate 325 mg (65 mg 325 mg PO BID #0 07/13/17 11/19/17 iron) tablet (Iron (ferrous sulfate)) omega 4-lbg-rlx-fish oil 1,000 mg 1,000 mg PO QDAY #0 07/13/17 11/19/17 (120 mg-180 mg) capsule (Fish Oil) trazodone 50 mg tablet 50 mg PO HS #0 07/13/17 11/19/17 ascorbic acid (vitamin C) 500 mg 500 mg PO BID #0 10/12/17 11/19/17 tablet (Vitamin C) celecoxib 100 mg capsule (Celebrex) 100 mg PO BID 10/12/17 11/19/17 cholecalciferol (vitamin D3) 10 400 unit PO DAILY 10/12/17 11/19/17 mcg (400 unit) tablet (Vitamin D3) gabapentin 300 mg capsule 300 mg PO TID 10/12/17 11/19/17 hydrochlorothiazide 25 mg tablet 25 mg PO DAILY 10/12/17 11/19/17 potassium 99 mg tablet 198 mg PO QPM 10/12/17 11/19/17 sulfasalazine 500 mg tablet 1,500 mg PO BID 10/12/17 11/19/17 cyclobenzaprine 10 mg tablet 20 mg PO BEDTIME 11/11/17 11/19/17 diltiazem HCl 180 mg 180 mg PO QAM 11/11/17 11/19/17 tablet,extended release 24 hr diphenhydramine 25 2 tab PO BEDTIME PRN 11/11/17 11/19/17 mg-acetaminophen 500 mg tablet (Tylenol PM Extra Strength) ropinirole 0.25 mg tablet (Requip) 0.25 mg PO QPM 11/11/17 11/19/17 liothyronine 5 mg PO DAILY 11/19/17 11/19/17 Disabled Parking Permit 1 ea MISCELLANEOUS DIRECTED 11/20/17 11/20/17 Previous Rx's Medication Instructions Recorded levothyroxine 112 mcg tablet 0.112 mg PO QAM #90 tab 12/23/16 lisinopril 20 mg tablet 20 mg PO QDAY #90 tab 12/23/16 omeprazole 40 mg capsule,delayed 40 mg OR SEE INSTRUCTIONS #90 cap 01/22/17 release aspirin 81 mg tablet,delayed 81 mg PO BID #60 07/31/17 release oxycodone 5 mg tablet 5 mg PO Q4HR PRN #0 tab 11/20/17 hydrocodone 5 mg-acetaminophen 325 1 tab PO Q6H PRN #14 tab 02/03/21 mg tablet hydrocodone 5 mg-acetaminophen 325 1 tab PO QID PRN #7 tab 02/03/21 mg tablet Allergies Allergy/AdvReac Type Severity Reaction Status Date / Time epinephrine [EPINEPHRINE] AdvReac Intermediate IN GENERAL Verified 11/19/17 17:24 ANESTHESIA DECREASED BP?; HEART RACING Review of Systems Review of Systems ROS Unobtainable: All systems reviewed & are unremarkable except as noted in HPI and below Patient History Surgical History History of hip replacement (08/29/15) History of tonsillectomy History of total knee arthroplasty Family History (Updated 10/10/16 @ 00:00 by Conversion Provider) Father Alcoholism Grandmother Blindness Osteoarthritis Grandfather Heart disease Hypertension Sister Age: 68 Asthma Diabetes mellitus Pacemaker Osteoarthritis Hypertension High cholesterol Social History household members: none Smoking Status: Former smoker alcohol intake: current Smoking Status: Former smoker alcohol intake frequency: holidays/special occasions only Substance Use Type: does not use Exam Narrative Exam Narrative: GENERAL: Alert and oriented x three, female in mild distress. Patient has been ambulating in the department. HEENT: Head normocephalic, atraumatic, EOMI, pupils reactive, face symmetric, moist mucous membranes NECK: Supple, full range of motion CARDIOVASCULAR: Regular rate and rhythm without murmurs, rubs or gallops. RESPIRATORY: Breath sounds equal bilaterally, no wheezes rales or rhonchi. ABDOMEN: Soft, nontender. Normoactive bowel sounds all 4 quadrants. No guarding or rebound, rigidity, no mass EXTREMITIES: Normal range of motion, no clubbing. Patient does have some edema of the hand, well as some mild deformity. Patient has full sensation in all 5 fingers. Full range of motion. 2+ radial pulse. Intact skin. Patient does not have any other bony tenderness. NEUROLOGICAL: Cranial nerves II through XII grossly intact. Moving all extremities SKIN: Warm, dry, no petechiae, no rashes or lesions. Initial Vital Signs Initial Vital Signs: Vital Signs Temperature 98.4 F 02/03/21 19:24 Pulse Rate 84 02/03/21 19:24 Respiratory Rate 18 02/03/21 19:24 Blood Pressure 150/89 H 02/03/21 19:24 Pulse Oximetry 99 02/03/21 19:24 Procedures Orthopedic Splinting/Casting Injury #1: Time of procedure: 22:23 Side: right Upper Extremity Injury Location: wrist Upper Extremity Immobilizer: sling/shoulder immobilizer and sugar tong splint Post splinting neuro exam: intact Post splinting vascular exam: intact Placed by: Provider Additional Comments: Patient had some traction and direct manipulation placed to improve alignment during splint placement. Course Orders Ordered: ED Orders 02/03/21 19:30 XR wrist RT min 3V Stat Discontinued Medications Hydrocodone Bitart/Acetaminophen (Hydrocodone/Acet 5/325 Prepack) 1 bottle MISC SEEINSTR ONE Stop: 02/03/21 21:27 Last Admin: 02/03/21 21:32 Dose: 1 bottle Documented by: CLARK Hydrocodone Bitart/Acetaminophen (Hydrocodone/Acet 5/325 Tablet) 2 tab PO NOW ONE Stop: 02/03/21 21:29 Last Admin: 02/03/21 21:32 Dose: 2 tab Documented by: CLARK Vital Signs Vital signs: Vital Signs - 8 hr 02/03/21 19:24 02/03/21 22:31 Temperature 98.4 F Pulse Rate 84 85 Respiratory Rate 18 16 Blood Pressure 150/89 H 167/80 H Pulse Oximetry 99 96 MDM - Extremity Injury (Upper) Imaging Data Extremity x-ray #1: Radiologist's Impression: Launch?[place] [address] XRay Report Signed Patient: Bel Coreas MR#: [id number] : 1945 Acct:[id number] Age/Sex: 75 / F Date of Service: 02/03/21 Loc: ED Accession Number: [id number] ?? Procedure: XR wrist RT min 3V Ordering Provider: Leti Rosa D.O. PROCEDURE:? XR WRIST RT MIN 3V ? INDICATIONS: fall ? TECHNIQUE:? Three views of the wrist were acquired.? ? COMPARISON:? None. ? FINDINGS:? ? Bones:? Impacted, transverse, minimally comminuted, and minimally dorsally displaced fracture of the distal radial metaphysis is present.? No definite extension to the articular surface.? Distal radioulnar joint and radiocarpal alignment appear normal.? No other fractures.? Incidental note made of degenerative subcortical cystic changes in the carpal bones. ? Soft tissues:? No suspicious soft tissue calcifications.? ? IMPRESSION:? 1. Minimally dorsally displaced transverse distal radial metaphyseal fracture.? 2. Subcortical cystic changes throughout the carpal bones.? ? ? Dictated by: Sara Amaro M.D. on 02/03/2021 at 20:03 ? ? Approved by: Sara Amaro M.D. on 02/03/2021 at 20:04?? MDM Narrative Medical decision making narrative: This is a 75-year-old female with ground level fall onto her right wrist with fracture of the radius. Patient is neurovascularly intact. She is placed in sugar-tong splint. With traction applied. Patient was given referral to Orthopedic surgery. Prescription for oral narcotics. Patient's prescription was sent to [facility] but she noted after had been sent that the pharmacy would likely be closed on Thursday as it is Labor Day. Was given a short written prescription use more locally because for she catches the [place] back to [place] Discharge Plan Departure Patient Disposition: Home Clinical Impression: Fracture of wrist Instructions: DI for Distal Radius Fracture Activity Restrictions/Additional Instructions: Follow-up with orthopedic surgery in the next week. Call for an appointment in the morning. Take pain medication as prescribed. This medication can make you sleepy do not drive, perform hazardous activities or make any major decisions while taking it. This medication will make you constipated please take a stool softener once to twice daily until stools are soft and regular. Prescription sent to [facility]. Splint Care: Keep splint clean and dry. Elevated affected body part to decrease swelling. OK to use ice pack on the affected body part. Use for 15-20 minutes each time, for 5-6x per day. If you develop worsening pain, numbness, tingling, discoloration of the affected body part, loosen the splint by loosening the BARNEY wrap, and either see your doctor for an urgent re-assessment, or return to the Emergency Department. Return to the Emergency Department for any new or worsening symptoms. Prescriptions: New hydrocodone-acetaminophen 5-325 mg tablet 1 tab PO Q6H PRN (Reason: pain) Qty: 14 RF: 0 hydrocodone-acetaminophen 5-325 mg tablet 1 tab PO QID PRN (Reason: pain) Qty: 7 RF: 0 No Action multivitamin Capsule 1 cap PO QAM Qty: 0 RF: 0 [CALCIUM W/VITAMIN D] capsule 1 tab PO Q DAY Qty: 0 RF: 0 acyclovir 800 MG tablet 800 mg PO BID PRN (Reason: Outbreaks) Qty: 0 RF: 0 lisinopril 20 MG tablet 20 mg PO QDAY Qty: 90 RF: 0 levothyroxine 112 MCG tablet 0.112 mg PO QAM Qty: 90 RF: 1 glucosamine sulfate-msm 1 EACH capsule 2 tab PO BID Qty: 0 RF: 0 acetaminophen 325 MG tablet 650 mg PO QAM Qty: 0 RF: 0 [CURCUMIN] capsule 1 cap PO QDAY Qty: 0 RF: 0 omeprazole 40 MG capsule,delayed release(DR/EC) 40 mg OR SEE INSTRUCTIONS Qty: 90 RF: 0 escitalopram oxalate [Lexapro] 20 MG tablet 20 mg PO QDAY Qty: 0 RF: 0 trazodone 50 MG tablet 50 mg PO HS Qty: 0 RF: 0 cetirizine 10 MG tablet 10 mg PO HS PRN (Reason: Allergy Symptoms) Qty: 0 RF: 0 diphenhydramine-acetaminophen [Acetaminophen PM] 500 MG/25 MG tablet 2 tab PO HSP PRN (Reason: pain) Qty: 0 RF: 0 ferrous sulfate [Iron (ferrous sulfate)] 325 MG tablet 325 mg PO BID Qty: 0 RF: 0 omega 3-tqj-sfp-fish oil [Fish Oil] 1,000 MG capsule 1,000 mg PO QDAY Qty: 0 RF: 0 aspirin 81 MG tablet,delayed release (DR/EC) 81 mg PO BID Qty: 60 RF: 0 potassium 99 mg Tablet 198 mg PO QPM RF: 0 gabapentin 300 mg Capsule 300 mg PO TID RF: 0 hydrochlorothiazide 25 mg Tablet 25 mg PO DAILY RF: 0 celecoxib [Celebrex] 100 mg Capsule 100 mg PO BID RF: 0 cholecalciferol (vitamin D3) [Vitamin D3] 400 unit Tablet 400 unit PO DAILY RF: 0 ascorbic acid (vitamin C) [Vitamin C] 500 mg Tablet 500 mg PO BID Qty: 0 RF: 0 sulfasalazine 500 mg Tablet 1,500 mg PO BID RF: 0 cyclobenzaprine 10 mg Tablet 20 mg PO BEDTIME RF: 0 diltiazem HCl 180 mg Tablet Extended Release 24 Hr 180 mg PO QAM RF: 0 diphenhydramine-acetaminophen [Tylenol PM Extra Strength] 25-500 mg Tablet 2 tab PO BEDTIME PRN (Reason: Sleep) RF: 0 ropinirole [Requip] 0.25 MG tablet 0.25 mg PO QPM RF: 0 liothyronine 5 mcg 5 mg PO DAILY RF: 0 oxycodone 5 mg Tablet 5 mg PO Q4HR PRN (Reason: Pain, Moderate) Qty: 0 RF: 0 Disabled Parking Permit package 1 ea miscellaneous DIRECTED RF: 0 Referrals: Antony Faria MD [Physician] - Nicola Escamilla MD [Primary Care Provider] -
[2021-02-03] MEDS: HYDROCODONE/ACET 5/325 PREPACK 1 BOTTLE MISC (21:32)
[2021-02-03] MEDS: HYDROCODONE/ACET 5/325 TABLET 2 TAB PO (21:32)
[2021-02-03 22:31] VITALS: BP 167/80; PULSE 85; RESP 16; O2SAT 96
== END 2021-02-03 22:33 | disposition home or self-care (01) ==
PROVIDERS: Emergency Provider Emergency Medicine; Family Provider Family Medicine; PCP Family Medicine
DX: S62.101A Fracture of unspecified carpal bone, right wrist, initial encounter for closed fracture (principal); W19.XXXA Unspecified fall, initial encounter
CPT/HCPCS: 29105; 73110; 99283; 99284